=== PATIENT | female | born 1985 | race Hispanic/Latino ===

== ENCOUNTER 2024-05-17 21:29 | Inpatient (IN) | payer BC ==
[2024-05-17] MEDS ORDERED: Misoprostol 200 MCG TAB ONE (21:40)
[2024-05-17] MEDS ORDERED: Tranexamic Acid 1,000 MG/10 ML VIAL ONE (21:40)
[2024-05-17] MEDS ORDERED: Oxytocin 30 units/NS 500 ML 500 ML ONE (21:40)
[2024-05-17] MEDS ORDERED: Carboprost 250 MCG/ML AMP ONE (21:41)
[2024-05-17] MEDS ORDERED: Methylergonovine 0.2 MG/ML VIAL ONE (21:41)
[2024-05-17] MEDS ORDERED: Ondansetron PF 4 MG/2 ML Vial IVP PRN (21:45)
[2024-05-17] MEDS ORDERED: Oxytocin 30 units/NS 500 ML 500 ML IV SCH ×2 (21:45)
[2024-05-17] MEDS ORDERED: Acetaminophen 500 MG TAB PO PRN (21:45)
[2024-05-17] MEDS ORDERED: Methylergonovine 0.2 MG/ML VIAL IM PRN (21:45)
[2024-05-17] MEDS ORDERED: Tranexamic Acid 1,000 MG/10 ML VIAL IVP PRN (21:45)
[2024-05-17] MEDS ORDERED: Lidocaine 1% (PF) 30 ML VIAL SC PRN (21:45)
[2024-05-17] MEDS ORDERED: Promethazine HCl 25 MG/ML VIAL IM PRN (21:45)
[2024-05-17] MEDS ORDERED: Diphenoxylate HCl/Atropine Tablet PO PRN (21:45)
[2024-05-17] MEDS ORDERED: hydrALAZINE 20 MG/ML VIAL SLOW IVP PRN (21:45)
[2024-05-17] MEDS ORDERED: Carboprost 250 MCG/ML AMP IM PRN (21:45)
[2024-05-17] MEDS ORDERED: Lactated Ringer's 1,000 ML IV SCH (21:45)
[2024-05-17] MEDS ORDERED: Misoprostol 200 MCG TAB PR PRN (21:45)
[2024-05-17] MEDS ORDERED: Lidocaine 1% (PF) 30 ML VIAL ONE (21:59)
[2024-05-17] MEDS ORDERED: diphenhydrAMINE 25 MG CAP PO PRN (22:32)
[2024-05-17] MEDS ORDERED: Lanolin Ointment 7 GM TUBE TOP PRN (22:32)
[2024-05-17] MEDS ORDERED: Preparation H Ointment 28 GM TUBE PR PRN (22:32)
[2024-05-17] MEDS ORDERED: traMADol HCl 50 MG TAB PO PRN (22:32)
[2024-05-17] MEDS ORDERED: Milk Of Magnesia 30 ML UDCUP PO PRN (22:32)
[2024-05-17] MEDS ORDERED: Bisacodyl 10 MG SUPP PR PRN (22:32)
[2024-05-17] MEDS ORDERED: Boostrix 0.5 ML (Tdap) VIAL (>/=7 yrs of age) IM ONE (22:32)
[2024-05-17 22:48] VITALS: BMI 37.3
[2024-05-17] MEDS: Ibuprofen 800 MG TAB PO PRN (22:57)
[2024-05-17 23:05] LABS: Hematocrit 34.5 % (34.9-44.5); Hemoglobin 11.9 g/dL (12.0-15.5); Mean Corpuscular HGB CONC 34.5 g/dL (32.0-36.0); Mean Corpuscular Hemoglobin 27.9 pg (27.0-33.0); Platelet Count 198 10x3/uL (150-450); RBC Distribution Width 14.5 % (11.5-14.5); Red Blood Cell (RBC) Count 4.26 10x6/uL (3.90-5.03); White Blood Cell (WBC) Count 9.4 10x3/uL (3.5-10.5)
[2024-05-17] MEDS: hydrALAZINE 20 MG/ML VIAL SLOW IVP PRN (23:13)
[2024-05-17 23:30] LABS: Syphilis Antibody Nonreactive (Nonreactive); Syphilis Antibody Index 0.04 S/CO (<1.00 Non-Reactive)
[2024-05-17 23:32] LABS: HBsAg Index 0.17 S/CO (0-0.99); Hep B Surf Ag - L&D Non-Reactive S/CO (NonReactive)
[2024-05-18 00:11] LABS: ALT (SGPT) 34 U/L (8-55); AST (SGOT) 21 U/L (5-34); Albumin 2.6 g/dL (3.5-5.0); Alkaline Phosphatase 154 U/L (40-110); Anion Gap 18 mmol/L (10-20); BUN (Urea Nitrogen) 13 mg/dL (7.0-18.7); Bilirubin, Total 0.4 mg/dL (0.2-1.2); Calc. Creatinine Clearance 111 mL/min (70-130); Calcium 9.7 mg/dL (7.8-10.44); Carbon Dioxide 17 mmol/L (22-29); Chloride 107 mmol/L (98-107); Estimated GFR 56; Globulin 3.4 g/dL (2.4-3.5); Glucose 133 mg/dL (70-105); Potassium 4.1 mmol/L (3.5-5.1); Sodium 138 mmol/L (136-145)
[2024-05-18] MEDS: NIFEdipine XL 30 MG ER.TAB PO SCH ×3 (01:34→22:00)
[2024-05-18] MEDS: Ibuprofen 800 MG TAB PO SCH (06:05)
[2024-05-18] MEDS: Ferrous Sulfate 325 MG TAB PO SCH (10:50)
[2024-05-18] MEDS: Docusate 100 MG CAP PO SCH (10:58)
[2024-05-18] MEDS: Prenatal Vitamin 1 TAB PO SCH (10:58)
[2024-05-19 11:20] VITALS: BP 132/78; TEMP 97.8
== END 2024-05-19 15:00 | disposition home or self-care (01) | DRG 806 ==
LOC: CSHLD/OP 21:29 → CSHLD 21:42 → CSHPP 05-18 03:16
PROVIDERS: ADMIT Obstetrics & Gynecology; ATTEND Student in an Organized Health Care Education/Training Program
PROC: 10E0XZZ Delivery of Products of Conception, External Approach (ICD-10-PCS; principal; 2024-05-17)
PROC: 0HQ9XZZ Repair Perineum Skin, External Approach (ICD-10-PCS; 2024-05-17)
DX: O60.14X1 Preterm labor third trimester with preterm delivery third trimester, fetus 1 (principal); O26.873 Cervical shortening, third trimester; Z37.2 Twins, both liveborn; O60.14X2 Preterm labor third trimester with preterm delivery third trimester, fetus 2; O30.043 Twin pregnancy, dichorionic/diamniotic, third trimester; Z3A.30 30 weeks gestation of pregnancy; Z79.82 Long term (current) use of aspirin; Z79.899 Other long term (current) drug therapy; O32.1XX0 Maternal care for breech presentation, not applicable or unspecified
CPT/HCPCS: 36415; 80053; 85027; 86780; 86850; 86900; 86901; 87340; 99285; J0360